=== PATIENT | female | born 1975 | race Caucasian/White ===

== ENCOUNTER → 2022-05-08 | Day surgery (SDC) | payer OTHER ==
[~2022-05-08] VITALS: Ht 165.1 cm; Wt 98.9 kg
[~2022-05-08] MED LIST: BUSPIRONE HCL10 MG PO; CETIRIZINE HCL10 MG PO; ESTRADIOL1 EAC6 TOP; FLUOXETINE HCL20 M1 PO; HYDROXYZINE HCL25 MG PO; KLONOPIN0.5 MG PO; LASIX20 MG PO; LEVOTHYROXINE88 MC1 PO; MAXALT10 MG PO; MECLIZINE HCL25 MG PO; OMEPRAZOLE20 M1 PO; OXYCODONE HCL5 M1 PO; PERCOCET 5/325 T1 EA PO; PRAVASTATIN SOD10 MG PO; PROGESTERONE100 MG PO; SINGULAIR10 MG PO; TIZANIDINE HCL4 MG PO; VITAMIN B12 PO; VITAMIN D21250 MCG PO; VRAYLAR1.5 MG PO
== END | disposition home or self-care (01) ==
LOC: OR 06:18
DX: S52.571A Other intraarticular fracture of lower end of right radius, initial encounter for closed fracture (principal); S83.422A Sprain of lateral collateral ligament of left knee, initial encounter; S93.401A Sprain of unspecified ligament of right ankle, initial encounter; G89.18 Other acute postprocedural pain; E78.5 Hyperlipidemia, unspecified; F41.9 Anxiety disorder, unspecified; F32.A Depression, unspecified; K21.9 Gastro-esophageal reflux disease without esophagitis; Z88.2 Allergy status to sulfonamides; Z88.8 Allergy status to other drugs, medicaments and biological substances; Z79.899 Other long term (current) drug therapy; W19.XXXA Unspecified fall, initial encounter
CPT/HCPCS: 73110; 76000; C1713; J0690; J1100; J2250; J2405; J2704; J2795; J3010; J3370